=== PATIENT | female | born 1990 | race Caucasian/White ===

== ENCOUNTER 2016-11-30 00:25 | Observation (INO) ==
[2016-11-30] MEDS ORDERED: FentaNYL 250 MCG/5 ML INJECTION IVP PRN (00:51)
[2016-11-30] MEDS ORDERED: NS 1,000 ML IV ONE ×3 (00:51→04:38)
[2016-11-30] MEDS ORDERED: ONDANSETRON 4 MG/2 ML INJECTION IVP ONE ×2 (00:51→03:43)
--- NOTE | 2016-11-30 00:54 | Emergency Department Report ---
Female Urogenital HPI - General Chief complaint: Urogenital-Female <Yohan Knutson - 11/30/16 08:33> Stated complaint: Vag bleeding <Yohan Knutson - 11/30/16 08:33> Time Seen by Provider: 11/30/16 00:34 <Yohan Knutson - 11/30/16 08:33> Source: patient, EMS <July,[facility] 11/30/16 01:24> Mode of arrival: EMS <eb 11/30/16 01:24> Limitations: no limitations <July,Vasu 11/30/16 01:24> - History of Present Illness HPI Narrative: 26yo presents to the ER for evaluation of vaginal bleeding. Pt was engaged in vaginal intercourse tonight at 2300 tonight, when she suddenly felt sharp pain in her uterus and pain in her rectum. Pt instantly had brisk bleeding with heavy clots. After > 30min without the bleeding stopping, pt called EMS for transportation to the ER. Pt had mirena placed 1 mo ago by her OB in [place]. Pt did not wait the recommended 7 days to engage in intercourse. Two weeks ago, pt had a similar episode of bleeding during/following intercourse. Had persistent spotting for several days afterwards. <eb 11/30/16 01:24> MD Complaint: vaginal bleeding <eb 11/30/16 01:24> Onset (ago): hour(s) <eb 11/30/16 01:24> Quality: cramping, other (Pressure) <11/30/16 01:24> Duration: constant <eb 11/30/16 01:24> Relieving factors: none <11/30/16 01:24> Exacerbating factors: intercourse, movement <11/30/16 01:24> Vaginal discharge: dark blood, blood clots <eb 11/30/16 01:24> Sexual activity: yes <eb 11/30/16 01:24> : no <11/30/16 01:24> Associated symptoms: denies other symptoms <eb 11/30/16 01:24> - Related Data : 5 <eb 11/30/16 01:24> Para: 5 <11/30/16 01:24> A: 0 <11/30/16 01:24> Home Medications Medication Instructions Recorded Confirmed Ferrous Sulfate [Iron] 325 mg PO DAILY 11/30/16 11/30/16 Multi Tablet 1 tab PO DAILY 11/30/16 11/30/16 <EamonYohan - 11/30/16 08:33> Allergies Allergy/AdvReac Type Severity Reaction Status Date / Time No Known Allergies Allergy Verified 11/30/16 00:54 <EamonYohan [facility] 11/30/16 08:33> Review of Systems All systems: reviewed and negative except as stated <11/30/16 01 :24> Genitourinary: Reports: as per HPI, other (Vaginal bleeding) < 01:24> [facility] Patient Stated Medical History Now No <EamonYohan [facility] 11/30/16 08:33> Patient Stated Medical History Now No <eb 11/30/16 01:24> Physical Exam - Limitations Limitations: no limitations <11/30/16 01:24> - General General appearance: alert, in no apparent distress <eb 11/30/16 01: 24> - Normal Exams: Head:: Normocephalic without trauma <11/30/16 01:24> Eyes:: Pupils are PERRLA w/ EOMI, No scleral icterus, irritation, or foreign bodies noted <eb 11/30/16 01:24> ENMT:: No facial trauma, nasal exudates, pharyngeal erythema, or exudates are noted <11/30/16 01:24> Neck:: Full range of motion, without adenopathy <eb 11/30/16 01:24> Chest/Respirations:: Clear all mckeon, with good airflow, and symmetry bilaterally <11/30/16 01:24> Cardiovascular:: Regular rate and rhythm, without murmur or gallop, Pulses 2+ all extremities, capillary refill, <2 seconds all extremities <July,Vasu 11/30/16:24> Lymphatic:: No lymphadenopathy <eb 11/30/16:24> Musculoskeletal:: No tenderness, or deformity noted <July,Vasu 11/30/16 :24> Integumentary:: No rashes, hives, or bruising noted <eb 11/30/16 :24> Neurological:: Patient is alert, and oriented <eb 11/30/16:24> Psychiatric:: Patient exhibits, appropriate attention <eb 11/30/16:24> - External exam: Present: normal external exam. Absent: erythema, tenderness, swelling, lesions, lacerations, ecchymosis <July,Vasu 11/30/16:24> Speculum exam: Present: cervical discharge (Bleeding). Absent: normal speculum exam, erythema, vaginal discharge, vaginal bleeding, foreign body, tissue, laceration <July,Vasu 11/30/16:24> Course Course Narrative: Pt is repeatedly verbally abusive with ER staff and radiology staff. Pt continues to demand pain control, IUD removal, someone to stop her bleeding. Pt repeatedly 'freaks out' when she passes clots. Pt and boyfriend? ? argue about dx, treatment, etc. When discussing dx and treatment, pt expresses incredulity that her vaginal bleeding is not considered an 'emergency' or that the amount of bleeding is not considered 'excessive'. Nothing that staff has done for pt is considered 'enough'. Pt is not satisfied that her IUD is not being removed here and that bleeding has not been instantaneously stopped. Suspect unrealistic expectations vs borderline personality disorder as underlying issue. Pt has not adhered to OB recommendations regarding pelvic rest following IUD insertion. Do not expect pt will adhere to recommendations given here tonight, since pt is in denial regarding diagnosis, prognosis, and treatment. As pt was being prepared for discharge, her BP dropped, but without a compensatory increase in heart rate. BP remained low, so fluids were started, type and cross was ordered, as was a repeat H/H and INR. Supplemental O2 was given for hypoxia. OB consultant internship was contacted; he will present to the ER for further eval/treatment. Pts BP improved with NS bolus to 104/65; pulse remained in the 70-[address] Castañeda Arrived in the ER; after evaluating pt, attempted to place an intrauterine goel to tamponade. However, goel would not stay. Pt given 25mg of conjugated estrogens IV. Will observe; if bleeding does not improve, will need to consider more invasive treatments. <11/30/16 05:41> - Consultations Consultation #1: Dr. Castañeda: Will present to the ER to help with management. <eb 11/30/16 04:14> Time: 03:54 <11/30/16 03:54> Vital Signs Temperature 98.1 F 11/30/16 00:25 Pulse Rate 90 11/30/16 00:25 Respiratory Rate 20 11/30/16 00:25 Blood Pressure 118/75 11/30/16 00:25 Pulse Oximetry 95 11/30/16 00:25 Temperature 98.1 F 11/30/16 00:25 Pulse Rate 69 11/30/16 07:53 Respiratory Rate 16 11/30/16 07:53 Blood Pressure 90/51 11/30/16 07:53 Pulse Oximetry 96 11/30/16 07:53 <Yohan Knutson Q - 11/30/16 08:33> Urogenital-Female - MDM Narrative Medical decision making narrative: Received from Dr. Vasu Sarah at 0600 hours. Patient currently resting comfortably. Patient has received 3 L of fluid pressure has stabilized current heart rate 64 blood pressure 91/52. Patient is resting comfortably. Dr. Castañeda, obstetrics and gynecology, is intimately involved in the care of the patient, currently awaiting repeat hemoglobin last hemoglobin 11 down from 14. Patient's hemoglobin is now 9, blood pressure has remained in the 90s over 50s, Dr. Castañeda and Dr. Melvin has returned and evaluated patient and they will admit to Dr. Castañeda observation <Yohan Knutson Q - 11/30/16 08:33> Pt with uterine bleeding following intercourse. IUD is in good position. No focal source of bleeding. <JulyVasu - 11/30/16 05:22> - Differential Diagnosis Likely: dysmenorrhea (Cervical laceration, DUB, uterine laceration) <JulyVasu - 11/30/16 01:24> - Medical Records Attestation: I reviewed the patient's medical records. <JulyVasu - 01:24> - Lab Data Attestation: I reviewed the patient's lab results. <JulyVasu - 11/30/16 01: 24> Result diagrams: 11/30/16 06:13 11/30/16 01:29 <Yohan Knutson Q - 11/30/16 08:33> Lab Results 11/30/16 11/30/16 11/30/16 Range/Units 01:29 01:29 01:29 WBC 12.5 H (4.5-11.0) T/MM3 RBC 4.74 (4.00-5.20) M/MM3 Hgb 14.3 (12-16) GM/DL Hct 41.2 (36-46) % MCV 86.9 (80-100) UM3 MCH 30.2 (26-34) UUG MCHC 34.7 (31-37) GM/DL RDW Std Deviation 41.8 (36.9-50.2) FL Plt Count 263 (130-400) T/MM3 MPV 10.9 (9.4-12.4) UM3 Immature Gran % (Auto) 0.3 (0.0-0.5) % Neut % (Auto) 54.9 (33-66) % Lymph % (Auto) 36.2 (23-45) % Chaves % (Auto) 6.9 (0-9.0) % Eos % (Auto) 1.4 (0-4) % Baso % (Auto) 0.3 (0-2) % Neut # 6.9 (1.8-7.7) T/MM3 Lymph # 4.5 (1-4.8) T/MM3 Chaves # 0.9 H (0-0.8) T/MM3 Eos # 0.2 (0-0.5) T/MM3 Baso # 0.0 (0-0.2) T/MM3 Abs Immat Gran (auto) 0.04 H (0.00-0.03) T/MM3 INR (0.99-1.21) Turbidity < 20 (0-20) Sodium 145 H (134-144) MEQ/L Potassium 3.6 (3.6-5) MEQ/L Chloride 107 (98-107) MEQ/L Carbon Dioxide 21 L (22-30) MEQ/L Anion Gap 17 H (5-15) MEQ/L BUN 11.0 (7-17) MG/DL Creatinine 0.9 (0.7-1.2) MG/DL GFR Calculation 75 BUN/Creatinine Ratio 12 (6-26) RATIO Glucose 86 (65-110) MG/DL Calculated Osmolality 277 (261-280) MOSM/KG Calcium 10.3 H (8.4-10.2) MG/DL Icterus Index < 2 (0-7) Serum , Qual (Negative) Specimen Hemolysis < 15 (0-25) Blood Type O Negative Antibody Screen Negative Crossmatch (AHG) See Detail 11/30/16 11/30/16 11/30/16 Range/Units 01:29 01:29 04:11 WBC 13.0 H (4.5-11.0) T/MM3 RBC 3.70 L (4.00-5.20) M/MM3 Hgb 11.1 L D (12-16) GM/DL Hct 32.6 L D (36-46) % MCV 88.1 (80-100) UM3 MCH 30.0 (26-34) UUG MCHC 34.0 (31-37) GM/DL RDW Std Deviation 41.6 (36.9-50.2) FL Plt Count 224 (130-400) T/MM3 MPV 10.0 (9.4-12.4) UM3 Immature Gran % (Auto) (0.0-0.5) % Neut % (Auto) (33-66) % Lymph % (Auto) (23-45) % Chaves % (Auto) (0-9.0) % Eos % (Auto) (0-4) % Baso % (Auto) (0-2) % Neut # (1.8-7.7) T/MM3 Lymph # (1-4.8) T/MM3 Chaves # (0-0.8) T/MM3 Eos # (0-0.5) T/MM3 Baso # (0-0.2) T/MM3 Abs Immat Gran (auto) (0.00-0.03) T/MM3 INR 1.08 (0.99-1.21) Turbidity (0-20) Sodium (134-144) MEQ/L Potassium (3.6-5) MEQ/L Chloride (98-107) MEQ/L Carbon Dioxide (22-30) MEQ/L Anion Gap (5-15) MEQ/L BUN (7-17) MG/DL Creatinine (0.7-1.2) MG/DL GFR Calculation BUN/Creatinine Ratio (6-26) RATIO Glucose (65-110) MG/DL Calculated Osmolality (261-280) MOSM/KG Calcium (8.4-10.2) MG/DL Icterus Index (0-7) Serum , Qual Negative (Negative) Specimen Hemolysis (0-25) Blood Type Antibody Screen Crossmatch (AHG) 11/30/16 Range/Units 06:13 WBC 13.5 H (4.5-11.0) T/MM3 RBC 3.15 L (4.00-5.20) M/MM3 Hgb 9.3 L D (12-16) GM/DL Hct 28.3 L D (36-46) % MCV 89.8 (80-100) UM3 MCH 29.5 (26-34) UUG MCHC 32.9 (31-37) GM/DL RDW Std Deviation 42.4 (36.9-50.2) FL Plt Count 173 (130-400) T/MM3 MPV 9.9 (9.4-12.4) UM3 Immature Gran % (Auto) (0.0-0.5) % Neut % (Auto) (33-66) % Lymph % (Auto) (23-45) % Chaves % (Auto) (0-9.0) % Eos % (Auto) (0-4) % Baso % (Auto) (0-2) % Neut # (1.8-7.7) T/MM3 Lymph # (1-4.8) T/MM3 Chaves # (0-0.8) T/MM3 Eos # (0-0.5) T/MM3 Baso # (0-0.2) T/MM3 Abs Immat Gran (auto) (0.00-0.03) T/MM3 INR (0.99-1.21) Turbidity (0-20) Sodium (134-144) MEQ/L Potassium (3.6-5) MEQ/L Chloride (98-107) MEQ/L Carbon Dioxide (22-30) MEQ/L Anion Gap (5-15) MEQ/L BUN (7-17) MG/DL Creatinine (0.7-1.2) MG/DL GFR Calculation BUN/Creatinine Ratio (6-26) RATIO Glucose (65-110) MG/DL Calculated Osmolality (261-280) MOSM/KG Calcium (8.4-10.2) MG/DL Icterus Index (0-7) Serum , Qual (Negative) Specimen Hemolysis (0-25) Blood Type Antibody Screen Crossmatch (AHG) <Yohan Knutson Q - 11/30/16 08:33> Lab Results 11/30/16 11/30/16 11/30/16 Range/Units 01:29 01:29 01:29 WBC 12.5 H (4.5-11.0) T/MM3 RBC 4.74 (4.00-5.20) M/MM3 Hgb 14.3 (12-16) GM/DL Hct 41.2 (36-46) % MCV 86.9 (80-100) UM3 MCH 30.2 (26-34) UUG MCHC 34.7 (31-37) GM/DL RDW Std Deviation 41.8 (36.9-50.2) FL Plt Count 263 (130-400) T/MM3 MPV 10.9 (9.4-12.4) UM3 Immature Gran % (Auto) 0.3 (0.0-0.5) % Neut % (Auto) 54.9 (33-66) % Lymph % (Auto) 36.2 (23-45) % Chaves % (Auto) 6.9 (0-9.0) % Eos % (Auto) 1.4 (0-4) % Baso % (Auto) 0.3 (0-2) % Neut # 6.9 (1.8-7.7) T/MM3 Lymph # 4.5 (1-4.8) T/MM3 Chaves # 0.9 H (0-0.8) T/MM3 Eos # 0.2 (0-0.5) T/MM3 Baso # 0.0 (0-0.2) T/MM3 Abs Immat Gran (auto) 0.04 H (0.00-0.03) T/MM3 INR (0.99-1.21) Turbidity < 20 (0-20) Sodium 145 H (134-144) MEQ/L Potassium 3.6 (3.6-5) MEQ/L Chloride 107 (98-107) MEQ/L Carbon Dioxide 21 L (22-30) MEQ/L Anion Gap 17 H (5-15) MEQ/L BUN 11.0 (7-17) MG/DL Creatinine 0.9 (0.7-1.2) MG/DL GFR Calculation 75 BUN/Creatinine Ratio 12 (6-26) RATIO Glucose 86 (65-110) MG/DL Calculated Osmolality 277 (261-280) MOSM/KG Calcium 10.3 H (8.4-10.2) MG/DL Icterus Index < 2 (0-7) Serum , Qual (Negative) Specimen Hemolysis < 15 (0-25) Blood Type O Negative Antibody Screen Negative Crossmatch (AHG) See Detail 11/30/16 11/30/16 11/30/16 Range/Units 01:29 01:29 04:11 WBC 13.0 H (4.5-11.0) T/MM3 RBC 3.70 L (4.00-5.20) M/MM3 Hgb 11.1 L D (12-16) GM/DL Hct 32.6 L D (36-46) % MCV 88.1 (80-100) UM3 MCH 30.0 (26-34) UUG MCHC 34.0 (31-37) GM/DL RDW Std Deviation 41.6 (36.9-50.2) FL Plt Count 224 (130-400) T/MM3 MPV 10.0 (9.4-12.4) UM3 Immature Gran % (Auto) (0.0-0.5) % Neut % (Auto) (33-66) % Lymph % (Auto) (23-45) % Chaves % (Auto) (0-9.0) % Eos % (Auto) (0-4) % Baso % (Auto) (0-2) % Neut # (1.8-7.7) T/MM3 Lymph # (1-4.8) T/MM3 Chaves # (0-0.8) T/MM3 Eos # (0-0.5) T/MM3 Baso # (0-0.2) T/MM3 Abs Immat Gran (auto) (0.00-0.03) T/MM3 INR 1.08 (0.99-1.21) Turbidity (0-20) Sodium (134-144) MEQ/L Potassium (3.6-5) MEQ/L Chloride (98-107) MEQ/L Carbon Dioxide (22-30) MEQ/L Anion Gap (5-15) MEQ/L BUN (7-17) MG/DL Creatinine (0.7-1.2) MG/DL GFR Calculation BUN/Creatinine Ratio (6-26) RATIO Glucose (65-110) MG/DL Calculated Osmolality (261-280) MOSM/KG Calcium (8.4-10.2) MG/DL Icterus Index (0-7) Serum , Qual Negative (Negative) Specimen Hemolysis (0-25) Blood Type Antibody Screen Crossmatch (AHG) 11/30/16 Range/Units 06:13 WBC 13.5 H (4.5-11.0) T/MM3 RBC 3.15 L (4.00-5.20) M/MM3 Hgb 9.3 L D (12-16) GM/DL Hct 28.3 L D (36-46) % MCV 89.8 (80-100) UM3 MCH 29.5 (26-34) UUG MCHC 32.9 (31-37) GM/DL RDW Std Deviation 42.4 (36.9-50.2) FL Plt Count 173 (130-400) T/MM3 MPV 9.9 (9.4-12.4) UM3 Immature Gran % (Auto) (0.0-0.5) % Neut % (Auto) (33-66) % Lymph % (Auto) (23-45) % Chaves % (Auto) (0-9.0) % Eos % (Auto) (0-4) % Baso % (Auto) (0-2) % Neut # (1.8-7.7) T/MM3 Lymph # (1-4.8) T/MM3 Chaves # (0-0.8) T/MM3 Eos # (0-0.5) T/MM3 Baso # (0-0.2) T/MM3 Abs Immat Gran (auto) (0.00-0.03) T/MM3 INR (0.99-1.21) Turbidity (0-20) Sodium (134-144) MEQ/L Potassium (3.6-5) MEQ/L Chloride (98-107) MEQ/L Carbon Dioxide (22-30) MEQ/L Anion Gap (5-15) MEQ/L BUN (7-17) MG/DL Creatinine (0.7-1.2) MG/DL GFR Calculation BUN/Creatinine Ratio (6-26) RATIO Glucose (65-110) MG/DL Calculated Osmolality (261-280) MOSM/KG Calcium (8.4-10.2) MG/DL Icterus Index (0-7) Serum , Qual (Negative) Specimen Hemolysis (0-25) Blood Type Antibody Screen Crossmatch (AHG) <11/30/16 01:24> - Radiology Data Attestation: I reviewed the patient's radiology results. < 01:24> CT Pelvis: FINDINGS: The uterus is normal in size, echogenicity and contour. The endometrium is normal in thickness. There is an IUD within the endometrial cavity. There is a large avascular complex collection within the endocervical canal and upper vagina which decreases later in the examination compatible with blood. There are 5.2 and 2.3 cm LEFT ovarian cysts. The RIGHT ovary appears unremarkable. Blood flow is seen within each ovary. The adnexal regions and cul-de-sac are otherwise free of masses and fluid. IMPRESSION: Passage of blood clot from the endocervical canal and upper vagina. LEFT ovarian cysts. <July,Vasu 11/30/16 03:29> Disposition Clinical Impression: Uterine bleeding, dysfunctional IUD complication Qualifiers: Device complication type: mechanical Mechanical complication type: other Encounter type: initial encounter Qualified Code(s): T83.39XA - Other mechanical complication of intrauterine contraceptive device, initial encounter <Yohan Knutson 11/30/16 08:33> Disposition: 02 To [facility] <Yohan Knutson 11/30/16 08:33> Print Language: Italian <Yohan Knutson Q - 11/30/16 08:33> Condition: Improved <Yohan Knutson Q - 11/30/16 08:33> Instructions: Dysfunctional Uterine Bleeding (ED) <Yohan Knutson - 08:33> Additional Instructions: You have uterine bleeding, likely caused by moving your IUD during sex. Start by taking naproxen 500mg every 12 hours or ibuprofen 800mg three times per day. Follow up with your OB to discuss contraceptive management. <Yohan Knutson - 11/30/16 08:33> Prescriptions: No Action Multi Tablet 1 tab PO DAILY Ferrous Sulfate [Iron] 325 mg PO DAILY <Yohan Knutson - 11/30/16 08:33> Referrals: <Yohan Knutson - 11/30/16 08:33> Time of Disposition: 08:33 <Yohan Knutson - 11/30/16 08:33> - Seen By: physician <Yohan Knutson - 11/30/16 08:33> physician <Vasu Sarah - 11/30/16 04:26>
--- OUTSIDE RECORDS SUMMARY | 2016-11-30 01:50 | External Medical Summary | Continuity of Care Document ---
:1990 Author Organization [facility] Allergies Active Description Code Type Severity Reaction Onset Reported/ Identified Relationship Clinical to Patient Status Yes No Known No Drug Unknown N/A 08/17/2008 Contrast Known Aller Allergies Contr gy ast Aller gies Yes No Known No Drug Unknown N/A 08/17/2008 Drug Known Aller Allergies Drug gy Aller gies Yes No Known No Drug Unknown N/A 08/17/2008 Food Known Aller Allergies Food gy Aller gies Yes No Known No Drug Unknown N/A 08/17/2008 Other Known Aller Allergies Other gy Aller gies Yes Codeine Drug Headache 07/01/2010 Aller gy Yes Codeine Drug N/A Headache 07/01/2010 Aller gy Yes No Known Food 02/12/2012 Food Aller Allergies gy Yes No Known Food N/A N/A 04/09/2013 Food Aller Allergies gy Yes No Known No Drug Unknown N/A 09/14/2016 Allergies Known Aller Aller gy gies Medications Problems Date Dx Attending Type Code Diagnosis Diagnosed By Coded 01/16/2012 Patricia MARI, Final 305.1 TOBACCO USE Nato DISORDER 01/16/2012 Patricia MARI, Final 708.9 URTICARIA NOS Nato 01/16/2012 Patricia MARI, Admitting 782.1 NONSP SKIN Nato ERUPTION NEC 09/26/2012 Jeff Ojeda DO Final 041.9 BACTERIAL A INFECTION NOS 09/26/2012 Jeff Ojeda DO Final 305.1 TOBACCO USE A DISORDER 09/26/2012 Jeff Ojeda DO Final 616.10 VAGINITIS NOS A 09/26/2012 Jeff Ojeda DO Admitting 789.09 ABDOMINAL A PAIN-SITE NEC 09/29/2012 Patricia MARI, Final 098.0 ACUTE LOWER Nato GC INFECT 09/29/2012 Patricia MARI, Final 305.1 TOBACCO USE Nato DISORDER 04/09/2013 Heber Barr MD Final 305.1 TOBACCO USE DISORDER 04/09/2013 Heber Barr MD Final 616.0 CERVICITIS 04/09/2013 Heber Barr MD 623.5 NONINF VAG LEUKORRHEA 04/09/2013 Heber Barr MD Admitting 625.9 FE GENITAL SYMPTOMS NOS Procedures Results Encounters ACCT No. Visit Discharge Status Pt. Type Provider Facility Loc./Unit Complaint Date/Time [id number] 04/09/2013 04/09/2013 DIS Emergency Momo MARI, [facility] 15:00:00 18:00:00 [facility] [id number] 09/29/2012 09/29/2012 DIS Emergency Stangl [facility] 4 22:20:00 23:30:00 MD [facility] [id number] 09/26/2012 09/27/2012 DIS Emergency Rusty [facility] 2 22:24:00 01:06:00 DO [facility] on [facility] [id number] 02/12/2012 02/12/2012 DIS Emergency Florentino [facility] 3 02:46:00 08:14:00 , [facility] [id number] 02/06/2012 02/06/2012 DIS Emergency Stangl [facility] 2 16:36:00 17:00:00 MD [facility] [id number] 01/16/2012 01/16/2012 DIS Emergency Stangl [facility] 1 20:42:00 22:32:00 MD [facility] on [facility] [id number] 09/14/2016 09/14/2016 DIS Emergency Nestor MayesEDW 83 18:45:00 19:35:00 , [facility]
[2016-11-30] MEDS: SALINE FLUSH 10ml SYRINGE IVF PRN ×2 (03:22→03:55)
[2016-11-30] MEDS ORDERED: NAPROXEN 220 MG TABLET PO ONE (03:24)
[2016-11-30] MEDS ORDERED: KETOROLAC 30 MG/ML INJECTION IVP ONE (03:35)
[2016-11-30] MEDS ORDERED: ESTROGENS CONJUGATED 25 MG IVP ONE ×2 (04:41→08:15)
[2016-11-30] MEDS: LR 1,000 ML IV SCH ×5 (05:10→17:55)
--- NOTE | 2016-11-30 08:03 | Ultrasound Report ---
Indication: Vag bleed PROCEDURE: US pelvic complete: Encounter: Initial Comparison: None FINDINGS: Transvaginal and transabdominal pelvic imaging was performed. The uterus measures 1.5 x 4.5 x 6 cm. The parenchyma is homogeneous without fibroids. Intrauterine device appears properly positioned in the endometrial canal. There is a large area of heterogeneous nonvascular hyperechoic material in the area of the cervix, most of which appears to represent blood clot. This decreased after the patient passed some clot. Both ovaries are identified. The right ovary measures 3 x 2 x 1.5 cm. The left ovary measures 2.8 x 2 x 2.2 cm. 2.3 cm left ovarian cyst. Additional left adnexal or ovarian cyst measuring 5.2 cm in diameter. There are no abnormal adnexal masses detected. Doppler flow seen in both ovaries. IMPRESSION: Large amount of blood clot in the area of the cervix. IUD appears appropriately positioned. Prominent left ovarian cyst. There is a preliminary report by virtual radi[facility]. .
[2016-11-30] MEDS ORDERED: WATER FOR INJ STERILE INJ ONE (08:15)
[2016-11-30] MEDS ORDERED: ACETAMINOPHEN 325 MG TABLET PO PRN (09:55)
[2016-11-30 10:14] VITALS: BMI 26.2
[2016-11-30] MEDS ORDERED: ESTROGENS, CONJUGATED 0.45 MG TABLET PO SCH (10:45)
[2016-11-30] MEDS ORDERED: ESTROGENS, CONJUGATED 0.45 MG TABLET PO ONE (10:45)
--- NOTE | 2016-11-30 11:37 | Emergency Room Note ---
DATE OF CONSULTATION: 11/30/2016 I was called by Dr. Sarah, the ER physician, at approximately 4:00 a.m. this morning for an ER consult. He reported the patient was hemodynamically unstable , so I got up and immediately came in to evaluate in person. This is a 26-year-old white female, G5, P5 female with a negative test and a Mirena IUD in place for approximately one month. She was having intercourse approximately 11:30 p.m. last night and had a sudden onset of cramping and bleeding. The Mirena was placed by [facility] office. When the bleeding did not quit at home, she came to the emergency room via EMS. She was about to be discharged home by Dr. Sarah and then her blood pressure dropped and her bleeding increased so she was kept and I was called. MEDICATIONS Mirena IUD. ALLERGIES NO KNOWN DRUG ALLERGIES. PAST MEDICAL HISTORY Denies. PAST SURGICAL HISTORY Tubes in the ears. 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 She is not planning on any further children. MEDICATIONS IN THE ER Ativan 1 mg Zofran 8 mg Toradol 30 mg. The patient and her significant other are in the ER room 4. I went in and talked to them and took her history. I talked about options. We are going to start by assessing her vaginal tract for any sort of lacerations that could be causing this type of bleeding. She reports she has never had this before. We are going to try to slide in a 30 cc Davis bulb to see if I can tamponade the bleeding. At the same time I have ordered Premarin 25 mg and 5 mL of isotonic saline to be given IV. I repeatedly asked about her past medical history and she has no history that would contraindicate giving Premarin. Before I did this , I also talked to them about the fact that there is a chance we may have to go to surgery either for a D&C or for a hysterectomy. I got verbal consent from the patient for either of those surgeries if needed. She is not planning on future childbearing and has delivered five children already. We talked about the fact that if we had to do a hysterectomy, we would try to leave her ovaries in place and just remove the uterus because of the bleeding. I next did a vaginal exam and removed 50-100 mL of clots from the vaginal tract. The IUD strings were still visible. Once all the clots are removed, there is currently not active bleeding from the cervix. There is no evidence of vaginal or cervical lacerations. I thread the catheter into the uterine cavity after cleansing it with Betadine swabs and I begin filling the bulb, but the bulb is far enough behind the tail that it immediately slides out the cervix. Every attempt was inserting it further knowing that I'm going in the same cavity as the IUD but again the Davis bulb just pops out as I try to fill it so this appears to be an successful option. At the same time we are giving IV Premarin. Since I have cleaned all the blood clots out of the vaginal tract we are going to start doing pad counts. I will have them insert a Davis catheter in her bladder, so we can do Ins and Outs and assess urine output. We have had three liters in since their arrival around midnight. They get 40-50 mL out when they placed the Davis. I will plan on repeating the blood count around 6:15. There are two units typed and crossed and ready to transfuse if needed. Questions were answered to the patient's and her significant other's satisfaction. At this point in time we are going to keep her in the ER until I figure out if we will have to go to surgery. MTDD
[2016-11-30] MEDS: ESTROGENS, CONJUGATED 0.3 MG TABLET PO SCH ×2 (17:58→22:04)
[2016-11-30] MEDS: ESTROGENS, CONJUGATED 0.45 MG TABLET PO SCH ×2 (17:59→22:04)
--- NOTE | 2016-11-30 18:30 | Progress Note ---
Progress Note: doing better feeling better fnally increased UO only spotting now on oral Premarin q&a-krb
[2016-12-01] MEDS ORDERED: ESTROGENS, CONJUGATED 0.45 MG TABLET PO SCH
[2016-12-01] MEDS ORDERED: ESTROGENS, CONJUGATED 0.3 MG TABLET PO SCH ×2
[2016-12-01] MEDS: LR 1,000 ML IV SCH ×3 (02:15→15:45)
[2016-12-01] MEDS: ESTROGENS, CONJUGATED 0.3 MG TABLET PO SCH ×3 (03:38→15:38)
[2016-12-01] MEDS: ESTROGENS, CONJUGATED 0.45 MG TABLET PO SCH ×3 (03:38→15:38)
[2016-12-01] MEDS ORDERED: NS FLUSH BAG 500ml IV PRN (08:41)
[2016-12-01] MEDS ORDERED: DiphenhydrAMINE 25 MG CAPSULE PO SCH (09:15)
[2016-12-01 16:20] VITALS: BP 99/60; PULSE 92; RESP 18; TEMP 99; O2SAT 97
--- NOTE | 2016-12-01 17:42 | Discharge Instructions ---
Discharge Plan - Med Rec/Dispo Referrals/Follow Up: Ari Castañeda MD [Physician] - 1 Week Fawad Instructions: Blood Transfusion (GEN) Prescriptions: Continue Multi Tablet 1 tab PO DAILY Ferrous Sulfate [Iron] 325 mg PO DAILY - Disposition 01 Discharged Home, Self-Care
--- NOTE | 2016-12-02 09:11 | Discharge Summary ---
DISCHARGE DIAGNOSIS 1. Acute blood loss anemia. 2. Uterine/vaginal hemorrhage. 3. Transfused one unit packed red blood cells. 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 That occurred approximately 23:30 p.m. on 11/29/2016. Her admission hemoglobin was 14.3 and dropped to 11.1 by recheck in the ER. I was consulted around 04:00 a.m. for this issue. She had had a [facility] [facility] [facility] sono which showed the IUD in normal position and uterus of normal size without fibroids. There was a 5 cm ovarian cyst. She was admitted to the hospital. I attempted to put a Davis balloon inside the uterus around the IUD to tamponade the bleeding but that was unsuccessful because the tail of the Davis wouldn't let me get it far enough in. So I did IV Premarin x2 doses at 05 :00 a.m. and again had 08:00 a.m. and that slowed her bleeding significantly. Then we switched her over to p.o. Premarin. We did serial blood counts. Her bleeding had dropped significantly and today she only has occasional spotting. The low of her hemoglobin was 7.7 this morning which is down from 14.3 at admission. The patient was lightheaded and dizzy with movement and had extreme fatigue and was highly symptomatic, so we transfused used her one unit of packed red blood cells and a followup hemoglobin was about 9.6. She is feeling much better, although still fatigued; she is no longer symptomatic when she is upright. So we don't have a good reason for why the bleed occurred. It is possible that the scab from the placenta came off during intercourse and started bright red bleeding. The bleeding did resolve with Premarin. We are going to leave the Mirena IUD in place and keep her on Premarin 2.5 every 6 hours until she sees me for follow-up in less than a week. Given this amount of bleeding with IUD in place and the fact that the patient is done with childbearing, we talked about options. We almost were to the point of performing an emergency hysterectomy straight from the ER but were able to postpone that. We are going to let her blood count build up a little bit but I believe that we'll still need a hysterectomy for acute blood loss of unknown origin. Another episode like this could be potentially fatal and since we don't have a reason or a cause , then we don't have a great was to prevent it. Questions were answered to her and her boyfriend's satisfaction. Will dismiss to home with a prescription to continue the Premarin. XIMENA
== END 2016-12-01 18:20 | disposition home or self-care (01) ==
LOC: ED 00:25 → SRG 00:25
PROVIDERS: ADMIT Obstetrics & Gynecology; ATTEND Obstetrics & Gynecology